=== PATIENT | male | born 1950 | race Caucasian/White ===

== ENCOUNTER 2017-05-19 13:07 | Emergency (ER) | payer MEDICARE, BC ==
[2017-05-19] MEDS ORDERED: LABETALOL HYDROCHLORIDE 5 MG/ML SOL IV ONE ×3 (13:42→14:44)
[2017-05-19 13:52] LABS: BASOPHILS % (AUTO) 1 % (0-3); EOSINOPHILS % (AUTO) 6 % (0-9); HEMATOCRIT 46 % (39-53); MEAN CORPUSCULAR HGB CONC 34.4 gm/dl (32.0-36.0); MEAN CORPUSCULAR VOLUME 90 fL (80-100); MONOCYTES % (AUTO) 10.7 % (0-12); NEUTROPHILS % (AUTO) 53.7 % (37-80)
[2017-05-19] MEDS ORDERED: SODIUM CHLORIDE 0.9% FLUSH 10 ML SOL IV PRN (13:53)
[2017-05-19] MEDS ORDERED: PHYTONADIONE 10 MG/ML SOL ONE (13:58)
[2017-05-19 14:10] LABS: APPEARANCE,URINE Clear; BILIRUBIN,URINE NEGATIVE (NEGATIVE); COLOR,URINE Yellow; GLUCOSE, URINE (UA) NEGATIVE (NEGATIVE); KETONES,URINE TRACE (NEGATIVE); LEUKOCYTE ESTERASE ,URINE NEGATIVE (NEGATIVE); NITRATE,URINE NEGATIVE (NEGATIVE); OCCULT BLOOD,URINE 1+ (NEG-TRACE); UROBILINOGEN,URINE 0.2 (0.2-1.0 EU)
[2017-05-19 14:12] LABS: ALBUMIN 3.9 gm/dl (3.4-5.0); CALCIUM 8.6 mg/dl (8.5-10.1); POTASSIUM 4.3 mMol/L (3.5-5.1)
[2017-05-19 14:25] LABS: RBC,URINE 0-2 (0-3AV/HPF); WBC,URINE 0-2 (0-5AV/HPF)
[2017-05-19 14:29] LABS: AMPHETAMINES NEGATIVE (NEGATIVE); METHADONE NEGATIVE (NEGATIVE); OPIATES(OP13) NEGATIVE (NEGATIVE); OXYCODONE(OXY) NEGATIVE (NEGATIVE); PROPOXYPHENE(PPX) NEGATIVE (NEGATIVE); TRICYCLIC ANTIDEPRESSANTS NEGATIVE (NEGATIVE)
[2017-05-19] MEDS ORDERED: ACETAMINOPHEN 500 MG 500 MG TAB PO ONE (14:42)
[2017-05-19] MEDS ORDERED: ACETAMINOPHEN 500 MG 500 MG TAB ONE (14:43)
[2017-05-19 15:16] VITALS: RESP 17; O2SAT 96
[2017-05-19 15:17] VITALS: BP 152/89; PULSE 68
[2017-05-19 15:46] VITALS: TEMP 98.7
== END 2017-05-19 15:25 | disposition home or self-care (01) | DRG 103 ==
LOC: ED 13:07
DX: R51 Headache (principal); I16.9 Hypertensive crisis, unspecified; R40.2142 Coma scale, eyes open, spontaneous, at arrival to emergency department; R40.4 Transient alteration of awareness; W00.0XXA Fall on same level due to ice and snow, initial encounter; R40.2362 Coma scale, best motor response, obeys commands, at arrival to emergency department; R40.2242 Coma scale, best verbal response, confused conversation, at arrival to emergency department
CPT/HCPCS: 70450; 80053; 80305; 80307; 81001; 85025; 85610; 85730; 99285; J3430